=== PATIENT | female | born 1960 | race Caucasian/White ===

== ENCOUNTER 2016-03-14 21:23 | Emergency (ER) | payer OTHER ==
[~2016-03-14] VITALS: Ht 154.9 cm; Wt 72.8 kg
[~2016-03-14 21:23] MED LIST: BUPR-83 PO; CALC-51 PO; DIVA500T59 PO; ESTR1TAB2 PO; VITAMIN C PO; [UNRECOGNIZED DRUG - REMARK] PO
[2016-03-14 21:25] VITALS: TEMP 36.4; Ht 154.9 cm; Wt 72.8 kg
[2016-03-14] MEDS ORDERED: CALCTAB7 PO (22:16)
[2016-03-14] MEDS ORDERED: ASCA500 PO (22:16)
--- NOTE | 2016-03-14 22:46 | DIAGNOSTIC IMAGING REPORT ---
CHEST ONE VIEW PORTABLE HISTORY: Atypical CHEST PAIN COMPARISON: None. FINDINGS: The lungs are clear. Cardiac silhouette is normal in size. No pleural effusions. No pneumothorax. IMPRESSION: No acute process. Electronically signed by: Simeon López M.D. 03/14/2016 10:45 PM Dictated Date/Time: 03/14/2016 10:44 PM
[2016-03-14 23:03] LABS: BASO % 0.3 %; BASO ABS # 0.04 K/uL (0-0.2); COMPLETE YES; EOS % 0.7 %; HEMATOCRIT 39.9 % (37-47); IG% 0.2 %; LYMPH ABS # 2.75 K/uL (1.2-3.4); MEAN CORPUSCULAR HEMOGLOBIN 28.2 pg (25-34); MEAN CORPUSCULAR HGB CONC 32.8 g/dl (32-36); MEAN PLATELET VOLUME 11.2 fL (7.4-10.4); MONO % 7.6 %; NEUT % 71.2 %; PLATELET COUNT 389 K/uL (130-400); RED BLOOD COUNT 4.64 M/uL (4.2-5.4); WHITE BLOOD COUNT 13.72 K/uL (4.8-10.8)
[2016-03-14 23:36] LABS: BLOOD UREA NITROGEN 22 mg/dl (7-18); BUN/CREATININE RATIO 20.2 (10-20); CALCIUM 9.5 mg/dl (8.5-10.1); CARBON DIOXIDE 27 mmol/L (21-32); CHLORIDE 103 mmol/L (98-107); GLUCOSE 95 mg/dl (70-99); SODIUM 143 mmol/L (136-145)
[2016-03-14 23:38] LABS: ALKALINE PHOSPHATASE 49 U/L (45-117); ALT/SGPT 26 U/L (12-78); AST/SGOT 23 U/L (15-37)
[2016-03-15] MEDS ORDERED: ONDANSETRON HOME PACK 4MG OD TAB PO ONE (00:30)
--- NOTE | 2016-03-15 01:07 | EMERGENCY ROOM VISIT NOTE ---
History First contact with patient: 21:39 Chief Complaint: ABDOMINAL PAIN Stated Complaint: PAIN IN ABDOMON, WENT AWAY ON THE WAY HERE Nursing Triage Summary: Pt reports she developed upper mid abdominal pain today after eating. Pain subsided prior to arrival to ER. Hx of kidney stones, but states it did not feel like a kidney stone. History of Present Illness The patient is a 55 year old female who presents to the Emergency Room with complaints of epigastric discomfort that lasted for about 45 minutes tonight at 8 PM. Patient had fried potatoes and eggs for dinner. No history of similar symptoms in the past. She describes the pain as aching, ranging in severity was 8 out of 10 and now is pain-free. She did not take any medicines for this. She was nauseous and sweaty with the pain. Pain did not radiate. Patient denies chest pain, dyspnea, fever, chills, vomiting, diarrhea, back pain, urinary symptoms. Review of Systems See HPI for pertinent positives & negatives. A total of 10 systems reviewed and were otherwise negative. Past Medical/Surgical History Medical Problems: (1) Anxiety State Nos (2) Bipolar Disorder, Unspecified (3) Depression Surgical Problems: (1) History of hysterectomy Kidney stones, tube ligation Social History Smoking Status: Never Smoker Smokeless Tobacco Use: No Alcohol Use: occasionally Drug Use: none Marital Status: Housing Status: lives with family Current/Historical Medications Scheduled Ascorbic Acid (Vitamin C), 500 MG PO DAILY Bupropion (Wellbutrin), 100 MG PO QAM Calcium Carbonate-Vitamin D W/ (Caltrate 600 Plus), 1 TAB PO DAILY Divalproex Sodium (Depakote), 2 TAB PO HS Estradiol (Estrace), 1 MG PO QAM [Unknown Drug], 1 TAB PO QAM Allergies Coded Allergies: [place] (Verified Allergy, Unknown, Rash, 01/01/16) Penicillins (Verified Allergy, Unknown, UNKNOWN, 01/01/16) Risperidone (Verified Allergy, Unknown, RASH, 01/01/16) Physical Exam Vital Signs Date Time Temp Pulse Resp B/P Pulse Ox O2 Delivery O2 Flow Rate FiO2 03/14/16 23:58 82 18 125/75 96 Room Air 03/14/16 22:37 84 03/14/16 22:29 Room Air 03/14/16 22:27 82 20 136/105 95 03/14/16 21:25 36.4 92 18 159/89 97 Room Air Physical Exam VITALS: Vitals are noted on the nurse's note and reviewed by myself. Vital signs stable. GENERAL: Pleasant female, in no acute distress, nondiaphoretic, well-developed well-nourished. SKIN: The skin was without rashes, erythema, edema, or bruising. There is no tenting of the skin. Capillary reflex less than 2 seconds. HEAD: Normocephalic atraumatic. EARS: External auditory canals clear, tympanic membranes pearly nixon without erythema or effusion bilaterally. EYES: Pupils equal round and reactive to light and accommodation. Conjunctivae without injection, sclerae without icterus. Extraocular movements intact. NOSE: Patent, turbinates without inflammation or discharge. MOUTH: Mucous membranes moist. Pharynx without erythema or exudate. Uvula midline. Airway patent. Tongue does not deviate. NECK: Supple without nuchal rigidity. No lymphadenopathy. No thyromegaly. Cervical spine is nontender. No JVD. HEART: Regular rate and rhythm without murmurs gallops or rubs. LUNGS: Clear to auscultation bilaterally without wheezes, rales or rhonchi. No dullness to percussion. No retractions or accessory muscle use. ABDOMEN: Positive bowel sounds x 4. Normal tympanic percussion. Soft, minimally tender epigastric region, no CVA tenderness, without masses or organomegaly. Kaur sign negative. No guarding or rebound tenderness. MUSCULOSKELETAL: No muscle atrophy, erythema, or edema noted. NEURO: Patient was alert and oriented to person place and time. Normal sensation to light and sharp touch. No focal neurological deficits. Medical Decision & Procedures Laboratory Results 03/14/16 22:20 Red Blood Count 4.64, Mean Corpuscular Volume 86.0, Mean Corpuscular Hemoglobin 28.2, Mean Corpuscular Hemoglobin Concent 32.8, Mean Platelet Volume 11.2, Neutrophils (%) (Auto) 71.2, Lymphocytes (%) (Auto) 20.0, Monocytes (%) (Auto) 7.6, Eosinophils (%) (Auto) 0.7, Basophils (%) (Auto) 0.3, Neutrophils # (Auto) 9.76, Lymphocytes # (Auto) 2.75, Monocytes # (Auto) 1.04, Eosinophils # (Auto) 0.10, Basophils # (Auto) 0.04 03/14/16 22:20 Test 03/14/16 22:20 03/15/16 00:17 White Blood Count 13.72 K/uL (4.8-10.8) Red Blood Count 4.64 M/uL (4.2-5.4) Hemoglobin 13.1 g/dL (12.0-16.0) Hematocrit 39.9 % (37-47) Mean Corpuscular Volume 86.0 fL (80-100) Mean Corpuscular Hemoglobin 28.2 pg (25-34) Mean Corpuscular Hemoglobin Concent 32.8 g/dl (32-36) Platelet Count 389 K/uL (130-400) Mean Platelet Volume 11.2 fL (7.4-10.4) Neutrophils (%) (Auto) 71.2 % Lymphocytes (%) (Auto) 20.0 % Monocytes (%) (Auto) 7.6 % Eosinophils (%) (Auto) 0.7 % Basophils (%) (Auto) 0.3 % Neutrophils # (Auto) 9.76 K/uL (1.4-6.5) Lymphocytes # (Auto) 2.75 K/uL (1.2-3.4) Monocytes # (Auto) 1.04 K/uL (0.11-0.59) Eosinophils # (Auto) 0.10 K/uL (0-0.5) Basophils # (Auto) 0.04 K/uL (0-0.2) RDW Standard Deviation 39.4 fL (36.4-46.3) RDW Coefficient of Variation 12.5 % (11.5-14.5) Immature Granulocyte % (Auto) 0.2 % Immature Granulocyte # (Auto) 0.03 K/uL (0.00-0.02) Anion Gap 13.0 mmol/L (3-11) Est Creatinine Clear Calc Drug Dose 52.1 ml/min Estimated GFR () 65.0 Estimated GFR (Non- 56.1 BUN/Creatinine Ratio 20.2 (10-20) Calcium Level 9.5 mg/dl (8.5-10.1) Magnesium Level 2.0 mg/dl (1.8-2.4) Total Bilirubin 0.2 mg/dl (0.2-1) Direct Bilirubin mg/dl (0-0.2) Aspartate Amino Transf (AST/SGOT) 23 U/L (15-37) Alanine Aminotransferase (ALT/SGPT) 26 U/L (12-78) Alkaline Phosphatase 49 U/L (45-117) Total Protein 7.5 gm/dl (6.4-8.2) Albumin 3.8 gm/dl (3.4-5.0) Lipase 217 U/L (73-393) Chemistry Specimen Hemolysis Troponin I < 0.015 ng/ml (0-0.045) ED Course Prior records/ancillary studies reviewed. Triage Nursing notes reviewed. Additional history obtained from family. The patient's history was concerning for abdominal pain. Differential diagnosis: Etiologies such as appendicitis, cardiac, diverticulitis, PUD, biliary pathology , UTI, pancreatitis, obstruction, mesenteric ischemia, aortic pathology, infections, inflammatory bowel disease, renal colic, as well as others were entertained. Physical examination findings: As above. ER treatment provided: IV fluids On reassessment the patient felt better. Diagnostics interpreted by me: ECG: Normal sinus, normal intervals, no acute ST-T wave changes. Impression normal sinus rhythm interpreted by myself The labs revealed 2 negative troponins 2 hours prior Imaging studies: US GALLBLADDER: 1.2 cm hepatic cyst No right hydronephrosis or evidence of free fluid Visualized head and body of the pancreas appear unremarkable A few small gallstones without wall thickening or pericholecystic free fluid CBD 5 mm Radiologist: Redd Sabillon M.D. CHEST ONE VIEW PORTABLE HISTORY: Atypical CHEST PAIN COMPARISON: None. FINDINGS: The lungs are clear. Cardiac silhouette is normal in size. No pleural effusions. No pneumothorax. IMPRESSION: No acute process. Electronically signed by: Simeon López M.D. 03/14/2016 10:45 PM Exam and history seem consistent with biliary colic. Patient was well- appearing. Pain had resolved. Negative EKG. Negative troponin. She was advised to follow-up family medicine in a few days or here in the ER sooner for vomiting, fevers, vomiting, worsening signs or symptoms or as needed. She did not have acute abdomen on exam and was stable. She is tolerating fluids.By the evaluation outlined above emergent etiologies such as appendicitis, diverticulitis, PUD, UTI, pancreatitis, obstruction, mesenteric ischemia, aortic pathology, infections, inflammatory bowel disease, renal colic, as well as others were deemed relatively unlikely. The pt informed about the findings as listed above. All questions were answered and pleased with the treatment. Return instructions were outlined and the patient was discharged in stable condition. Referral: The patient was referred back to their primary care physician for follow-up in 2 to 3 days for a recheck of the current condition. Case reviewed by attending. Medical Decision As above Impression Primary Impression: Biliary colic Departure Information Dispostion Home / Self-Care Condition GOOD Referrals Parviz Jesus M.D. (PCP) Patient Instructions [facility] Additional Instructions Avoid fatty foods. Matthews diet. Recommend hida scan outpatient with family care doctor for further evaluation and workup on her gallbladder. Ibuprofen(Motrin, Advil) may be used for fever or pain. Use 600mg every six hours as needed. Take with food. Avoid using more than 2400mg in a 24 hour period. Do not use 2400mg per day for more than three consecutive days without physician direction. Prolonged inappropriate use can lead to stomach upset or ulcers. (AND/OR) Acetaminophen(Tylenol) may be used for fever or pain. Use 1000mg every six hours as needed. Avoid using more than 3000mg in a 24 hour period. Rest and drink plenty of fluids as tolerated. Continue current medications. Avoid strenuous activities and anything that worsens your pain. Resume normal activities once your symptoms resolve. Return to the ER immediately for worsening or persistent abdominal pain, vomiting, fevers, chest pains, difficulty breathing, worsening of your condition , or as needed. Follow up with your primary physician in 2-3 days for a recheck of your current condition.
[2016-03-15 01:40] VITALS: BP 96/84; PULSE 87; O2SAT 96
--- NOTE | 2016-03-15 07:04 | DIAGNOSTIC IMAGING REPORT ---
ULTRASOUND RIGHT UPPER QUADRANT ABDOMEN CLINICAL HISTORY: Right upper quadrant abdominal pain. COMPARISON STUDY: No priors. TECHNIQUE: Real-time, grayscale, and color flow sonography of the right upper quadrant of the abdomen was performed. Images are reviewed in the transverse and longitudinal planes. FINDINGS: Liver: The liver is normal in size and echotexture. There is no intrahepatic biliary ductal dilatation. The main portal vein is patent. A 1.2 cm hepatic cyst is incidentally noted. Gallbladder: There are small calcified mobile gallstones. There is no gallbladder wall thickening or pericholecystic fluid. A sonographic Kaur's sign is reportedly absent. The common bile duct measures up to 0.5 cm in diameter. Pancreas: Visualized portions of the pancreatic head and body are normal in appearance. Right kidney: Survey images of the right kidney demonstrate cortical atrophy. There is no hydronephrosis. Ascites: None. IMPRESSION: Cholelithiasis without sonographic evidence of acute cholecystitis. Electronically signed by: Bhavik Kee M.D. 03/15/2016 7:03 AM Dictated Date/Time: 03/15/2016 7:01 AM
[2016-08-20] MEDS ORDERED: MIRT15TA2 PO (08:04)
[2016-08-20] MEDS ORDERED: FENO160T PO (08:04)
[2016-08-20] MEDS ORDERED: PANT40TA PO (08:04)
[2016-08-26] MEDS ORDERED: HYDR-5688 PO (08:27)
== END 2016-03-15 01:40 | disposition home or self-care (01) ==
LOC: C.EDB 21:24
DX: K80.50 Calculus of bile duct without cholangitis or cholecystitis without obstruction (principal); Z87.442 Personal history of urinary calculi; F41.9 Anxiety disorder, unspecified; F31.9 Bipolar disorder, unspecified; Z90.710 Acquired absence of both cervix and uterus; Z98.51 Tubal ligation status; Z79.899 Other long term (current) drug therapy

== ENCOUNTER → 2016-05-16 | Outpatient (CLI) | payer OTHER ==
[~2016-05-16] MED LIST changes: +ASCA500 PO; -CALC-51 PO; +CALCTAB7 PO; +FENO160T PO; +HYDR-5688 PO; +MIRT15TA2 PO; +PANT40TA PO; -VITAMIN C PO
--- NOTE | 2016-05-16 15:07 | MAMMOGRAPHY REPORT ---
BILATERAL DIGITAL SCREENING MAMMOGRAM TOMOSYNTHESIS WITH CAD: 05/16/2016 CLINICAL HISTORY: Routine screening. Patient has no complaints. TECHNIQUE: Breast tomosynthesis in addition to standard 2D mammography was performed. Current study was also evaluated with a Computer Aided Detection (CAD) system. COMPARISON: Comparison is made to exams dated: 11/22/2014 mammogram, 05/04/2014 mammogram, 10/08/2013 mammogram, 09/28/2013 mammogram, 09/23/2012 mammogram, and 09/10/2011 mammogram - [facility]. BREAST COMPOSITION: There are scattered areas of fibroglandular density in both breasts. FINDINGS: No suspicious masses, calcifications, or areas of architectural distortion are noted in e ither breast. There has been no significant interval change compared to prior exams. Bilateral adilson gn-appearing masses and calcifications are not significantly changed. IMPRESSION: ACR BI-RADS CATEGORY 2: BENIGN There is no mammographic evidence of malignancy. A 1 year screening mammogram is recommended. The p atient will receive written notification of the results. Approximately 10% of breast cancers are not detected with mammography. A negative mammographic repor t should not delay biopsy if a clinically suggestive mass is present. Elidia Huerta M.D. /:05/16/2016 13:59:21 [employer]: Tova ALICIA)(Rene), [facility] letter sent: Normal 1/2 BI-RADS Code: ACR BI-RADS Category 2: Benign
== END | disposition home or self-care (01) ==
LOC: C.MAMM 13:30
PROVIDERS: ATTEND Obstetrics & Gynecology
DX: Z12.31 Encounter for screening mammogram for malignant neoplasm of breast (principal)

== ENCOUNTER 2016-08-26 06:43 | Observation (INO) | payer OTHER ==
[2016-08-20 08:05] VITALS: BMI 29.0
--- NOTE | 2016-08-20 08:47 | PAT Medication Instructions ---
Service Date Aug 20, 2016. Current Home Medication List Bupropion (Wellbutrin), 100 MG PO QAM Calcium Carbonate-Vitamin D W/ (Caltrate 600 Plus), 1 TAB PO QAM Divalproex Sodium (Depakote), 2 TAB PO HS Estradiol (Estrace), 1 MG PO QAM Fenofibrate (Tricor), 160 MG PO QAM Mirtazapine Soltab (Remeron Soltab), 15 MG PO DAILY PRN for prn Pantoprazole (Protonix), 40 MG PO QAM Medication Instructions For Your Scheduled Surgery -Hold the following medications 24 hours prior to surgery: Fenofibrate (Tricor), 160 MG PO QAM - Hold the following medications the morning of surgery: Calcium Carbonate-Vitamin D W/ (Caltrate 600 Plus), 1 TAB PO QAM - Take the following medications the morning of surgery with a sip of water OTHERWISE NOTHING TO EAT OR DRINK AFTER MIDNIGHT: Estradiol (Estrace), 1 MG PO QAM Bupropion (Wellbutrin), 100 MG PO QAM Pantoprazole (Protonix), 40 MG PO QAM - Take the following medications as scheduled the night before surgery: Divalproex Sodium (Depakote), 2 TAB PO HS Mirtazapine Soltab (Remeron Soltab), 15 MG PO DAILY PRN If you have any questions please call us at [phone] or [phone] or [phone]
[2016-08-20 09:31] LABS: BASO % 0.7 %; BASO ABS # 0.04 K/uL (0-0.2); COMPLETE YES; EOS % 2.3 %; HEMATOCRIT 41.4 % (37-47); IG% 0.2 %; LYMPH % 47.3 %; LYMPH ABS # 2.73 K/uL (1.2-3.4); MEAN CELL VOLUME 87.5 fL (80-100); MEAN CORPUSCULAR HEMOGLOBIN 28.1 pg (25-34); MEAN CORPUSCULAR HGB CONC 32.1 g/dl (32-36); MONO % 9.5 %; PLATELET COUNT 338 K/uL (130-400); RED BLOOD COUNT 4.73 M/uL (4.2-5.4); WHITE BLOOD COUNT 5.77 K/uL (4.8-10.8)
[2016-08-20 10:31] LABS: BUN/CREATININE RATIO 19.4 (10-20); CALCIUM 9.6 mg/dl (8.5-10.1); CREATININE 0.93 mg/dl (0.60-1.20); POTASSIUM 4.1 mmol/L (3.5-5.1)
[2016-08-26] VITALS (11 sets, daily range): BP systolic 96–134; BP diastolic 54–85; PULSE 70–88; TEMP 36.2–36.8; O2SAT 92–98; Ht 154.9 cm; Wt 70.7 kg
[~2016-08-26] VITALS: Ht 154.9 cm; Wt 70.7 kg
[~2016-08-26 06:43] MED LIST changes: -ASCA500 PO; +CLINDAMYCIN IV 900 MG in DEXTROSE 5% ADD-VANTAGE 100ML 100 ML IV SCH; -HYDR-5688 PO; +LACTATED RINGER'S 1000ML IV SCH; +SCOPOLAMINE 1.5 MG TDSY TD SCH; -[UNRECOGNIZED DRUG - REMARK] PO
--- NOTE | 2016-08-26 08:20 | History & Physical Bridge Note ---
H&P Re-Evaluation Bridge Note: I have examined the patient, reviewed the History & Physical and in the interval since the performance of the History & Physical I have noted the following changes of clinical significance: No changes noted
[2016-08-26] MEDS ORDERED: BUPIVACAINE 0.5 % 5 MG/1 ML MPF 30ML VIAL ONE (08:27)
[2016-08-26] MEDS ORDERED: HYDR-5688 PO (08:27)
--- NOTE | 2016-08-26 08:28 | Discharge Instructions ---
Discharge Instructions Date of Service Aug 26, 2016. Admission Reason for Admission: Biliary Colic Discharge Discharge Diagnosis / Problem: chronic cholecystitis Discharge Goals Goal(s): Decrease discomfort, Improve function, Improve disease control Activity Recommendations Activity Limitations: as noted below Lifting Limitations: no more than 25 pounds Exercise/Sports Limitations: until after follow-up appointment May Resume Sexual Activity: when tolerated Shower/Bathe: tomorrow Driving or Machine Use: resume 3 days after discharge SPECIAL CARE INSTRUCTIONS: * Cover incisions and change daily for comfort/drainage. May leave uncovered with dermabond * May use ibuprofen for pain as tolerated. * Expect some swelling and bruising. Call your doctor if: * Temperature above 101 degrees * Pain not relieved by pain medicine ordered * There is increased drainage or redness from any incision * You have any unanswered questions or concerns [phone]. FOLLOW UP VISIT: If not already scheduled, please call the office for a follow-up visit. for 2 weeks- no sutures to remove OFFICE PHONE NUMBER: Dr. Loza Office . Current Hospital Diet Patient's current hospital diet: Discharge Diet Recommended Diet: Regular Diet Pending Studies Studies pending at discharge: no Medical Emergencies . Who to Call and When: Medical Emergencies: If at any time you feel your situation is an emergency, please call 911 immediately. . Non-Emergent Contact Non-Emergency issues call your: Primary Care Provider, Surgeon . "Provider Documentation" section prepared by Redd Loza. . VTE Core Measure Inpt VTE Proph given/why not?: SCD's
[2016-08-26] MEDS ORDERED: FENTANYL CITRATE INJ 50 MCG/1 ML 2 ML VIAL ONE (08:34)
[2016-08-26] MEDS ORDERED: MIDAZOLAM HCL 1 MG/ML 2ML VIAL ONE (08:34)
[2016-08-26] MEDS ORDERED: HYDROmorphone INJ 1 MG/ML SYR IV PRN (08:45)
[2016-08-26] MEDS ORDERED: ONDANSETRON INJ 2 MG/ML 2 ML VIAL IV PRN ×2 (08:45→09:45)
[2016-08-26] MEDS ORDERED: EpHEDrine SULFATE INJ 50 MG/ML AMP IV PRN (08:45)
[2016-08-26] MEDS ORDERED: ATROPINE SULFATE 0.1 MG/ML 5ML SYR IV PRN (08:45)
[2016-08-26] MEDS ORDERED: DEXAMETHASONE SOD INJ 4 MG/ML VIAL ONE (09:15)
[2016-08-26] MEDS ORDERED: PROPOFOL IV EMULSION 10 MG/ML 20 ML VIAL IV ONE (09:15)
[2016-08-26] MEDS ORDERED: LIDOCAINE HCL 2% 2 ML VIAL (20MG/ML) ONE ×2 (09:15)
[2016-08-26] MEDS ORDERED: ONDANSETRON INJ 2 MG/ML 2 ML VIAL ONE (09:15)
[2016-08-26] MEDS ORDERED: ROCURONIUM BROMIDE 10 MG/ML 5 ML VIAL ONE (09:16)
[2016-08-26] MEDS ORDERED: HYDROmorphone INJ 2 MG/ML SYR/VIAL ONE (09:25)
[2016-08-26] MEDS ORDERED: GLYCOPYRROLATE INJ 0.2 MG/ML VIAL ONE ×2 (09:34)
[2016-08-26] MEDS ORDERED: LACTATED RINGER'S 1000ML 1,000 ML IV SCH (09:34)
--- NOTE | 2016-08-26 09:41 | [facility] Operative Report ---
Operative Report Operative Date Aug 26, 2016. Pre-Operative Diagnosis Biliary Colic Post-Operative Diagnosis Same Procedure(s) Performed Laparoscopic Cholecystectomy Surgeon Dr. Loza Sample Puller Surgeon(s) MAIRA Armendariz Estimated Blood Loss 10ML Findings distended gallbladder Specimens A. Gallbladder Anesthesia gen Complication(s) None Disposition Recovery Room / PACU Description of Procedure Patient was brought in the operating room placed in the operating room table in a supine position. Metastatic stockings and orogastric tube were placed. Her abdomen was prepped and draped in usual fashion. A lower midline incision. Using 1/2% plain Marcaine the skin and subcutaneous taste tissue above the umbilicus were anesthetized. Incisions may carry dissection down to the fascia and reflecting it with a trach hook. A varies needle was then passed and pneumoperitoneum produced. Patient was placed in reverse Trendelenburg position and rotated to the left. An 11 mm port was placed this level and then under visualization 3 - 5 mm ports were placed one cephalad to laterally. The gallbladder was grasped and retracted. It was distended and then it was aspirated of bile. Dissection was carried at the annie hepatis identifying the cystic duct and cystic artery. These were clipped and transected and the gallbladder dissected away from the liver bed in usual fashion. Gallbladder was placed in an Endobag and removed through the umbilical site. All ports removed the fascia at the umbilicus closed using interrupted 0 Vicryl suture. Given reapproximated with subcuticular 4-0 Monocryl and Dermabond. Patient was transferred recovery room in stable condition. I attest to the content of the Intraoperative Record and any orders documented therein. Any exceptions are noted below.
[2016-08-26] MEDS ORDERED: PROMETHAZINE HCL INJ 25 MG in SODIUM CHLORIDE 0.9% 50ML 50 ML IV PRN (09:45)
[2016-08-26] MEDS ORDERED: MoRPHine SULFATE 2 MG/ML CARP IV PRN (09:45)
[2016-08-26] MEDS ORDERED: HYDROCODONE/ACETAMOPHEN 5/325MG TAB PO PRN ×2 (09:45)
[2016-08-26] MEDS ORDERED: MoRPHine SULFATE 4 MG/ML 1 ML CARP\\VIAL IV PRN (09:45)
[2016-08-26] MEDS: FENTANYL CITRATE INJ 50 MCG/1 ML 2 ML VIAL IV PRN ×3 (10:00→10:10)
[2016-08-26] MEDS ORDERED: PROMETHAZINE HCL INJ 12.5 MG in SODIUM CHLORIDE 0.9% 50ML 50 ML IV PRN (10:15)
--- NOTE | 2016-08-26 10:31 | Anesthesiology Progress Note ---
Anesthesia Post Op Note Date & Time Aug 26, 2016 at 10:30 Vital Signs Pain Intensity: 2 Vital Signs Past 12 Hours Date Time Temp Pulse Resp B/P (MAP) Pulse Ox O2 Delivery O2 Flow Rate FiO2 08/26/16 10:25 36.5 71 18 123/77 100 Nasal Cannula 2 08/26/16 10:15 67 18 128/78 100 Nasal Cannula 2 08/26/16 10:05 72 18 126/72 100 Oxymask 3 08/26/16 09:55 90 18 136/88 100 Oxymask 5 08/26/16 09:49 36.3 90 14 134/85 99 Oxymask 10 08/26/16 07:22 36.2 88 16 118/82 (94) 96 Room Air Notes Mental Status: alert / awake / arousable, participated in evaluation Pt Amnestic to Procedure: Yes Nausea / Vomiting: adequately controlled Pain: adequately controlled Airway Patency, RR, SpO2: stable & adequate BP & HR: stable & adequate Hydration State: stable & adequate Anesthetic Complications: no major complications apparent
--- NOTE | 2016-08-26 11:44 | Medical Consult ---
Consultation Date of Consultation: Aug 26, 2016. Attending Physician: Redd Loza M.D. Reason for Consultation: Medical Management History of Present Illness Pt is a 55 yo female with a h/o bipolar disorder, anxiety/depression, hyperlipidemia, and GERD, who is admitted for overnight obs after a lap paula performed today by Dr. Loza for biliary colic. SHe is drowsy post-op but otherwise feeling well. No N/V, no abd pain, no CP or SOB. Past Medical/Surgical History PMH: Biliary colic Bipolar Disorder, Unspecified Depression/Anxiety H/o Endometriosis cured with KRISTINE/BSO PSH: KRISTINE and BSO Family History Dad-colon CA in older age Mom-DMII Sister-DMII Brother-h/o biliary colic Social History Smoking Status: Never Smoker Smokeless Tobacco Use: No Alcohol Use: socially (1-2x/month) Drug Use: none Marital Status: in relationship (boyfriend) Housing Status: lives with family Occupation Status: employed ([employer]) Allergies Coded Allergies: [place] (Verified Allergy, Unknown, Rash, 08/20/16) Penicillins (Verified Allergy, Unknown, UNKNOWN, 08/20/16) Risperidone (Verified Allergy, Unknown, RASH, 08/20/16) Home Medications Reported Home Medications Medications Dose Route/Sig Max Daily Dose Days Date Category Dose Instructions Yale 5MG/325MG (Acetaminophen/Hydrocodone Bitart) Tab 1-2 Tablet PO Q 6 HRS PRN 08/26/16 Rx PRN PAIN Remeron Soltab (Mirtazapine) 15 Mg Soltab 15 Mg PO DAILY PRN 08/20/16 Reported Protonix (Pantoprazole Sodium) 40 Mg Tab 40 Mg PO QAM 08/20/16 Reported Tricor (Fenofibrate) 160 Mg Tab 160 Mg PO QAM 08/20/16 Reported Caltrate 600 Plus (Calcium Carbonate-Vitamin D W/) 1 Tab Tab 1 Tab PO QAM 03/14/16 Reported Wellbutrin (Bupropion HCl) 100 Mg Tab 100 Mg PO QAM 12/19/15 Reported Depakote (Divalproex Sodium) 500 Mg Tab 2 Tab PO HS 30 12/19/15 Reported Estrace (Estradiol) 1 Mg Tab 1 Mg PO QAM 01/02/15 Reported Current Inpatient Medications Current Inpatient Medications Medications (Trade) Dose Ordered Sig/Brice Route Start Time Stop Time Status Last Admin Dose Admin Lactated Ringer's 1,000 ml @ 15 mls/hr Q24H IV 08/26/16 06:00 08/27/16 05:59 08/26/16 07:42 15 MLS/HR Scopolamine (Transderm-Scop Patch) 1.5 mg PREOP TD 08/26/16 06:00 08/26/16 15:00 08/26/16 07:42 1.5 MG Miscellaneous (Remove Transderm-Scop Patch) 1 ea Q72H N/A 08/29/16 06:00 08/29/16 06:01 Miscellaneous Information (Check Scopolamine Patch Placement) 1 ea QS N/A 08/26/16 16:00 08/28/16 05:59 Fentanyl Citrate (Fentanyl Inj) 25 mcg Q5M PRN IV 08/26/16 08:45 08/26/16 13:45 08/26/16 10:10 25 MCG Hydromorphone HCl (Dilaudid Inj) 0.5 mg Q5M PRN IV 08/26/16 08:45 08/26/16 13:45 Ephedrine Sulfate (EpHEDrine SULFATE INJ) 5 mg Q5M PRN IV 08/26/16 08:45 08/26/16 13:45 Atropine Sulfate (Atropine Sulfate 0.1MG/Ml Inj) 0.5 mg Q1M PRN IV 08/26/16 08:45 08/26/16 13:45 Bupropion HCl (Wellbutrin Tab) 100 mg QAM PO 08/27/16 09:00 09/26/16 08:59 UNV Divalproex Sodium (Depakote Delay Rel Tab) 1,000 mg HS PO 08/26/16 21:00 09/25/16 20:59 UNV Lactated Ringer's 1,000 ml @ 50 mls/hr Q20H IV 08/26/16 09:34 09/25/16 09:33 08/26/16 10:53 50 MLS/HR Acetaminophen/ Hydrocodone Bitart (Yale 5/325 Tab) 1 tab Q4 PRN PO 08/26/16 09:45 09/09/16 09:44 Acetaminophen/ Hydrocodone Bitart ([place]ale 5/325 Tab) 2 tab Q4 PRN PO 08/26/16 09:45 09/09/16 09:44 Morphine Sulfate (MoRPHine SULFATE INJ) 2 mg Q4H PRN IV 08/26/16 09:45 09/09/16 09:44 Morphine Sulfate (MoRPHine SULFATE INJ) 4 mg Q4H PRN IV 08/26/16 09:45 09/09/16 09:44 Promethazine HCl 25 mg/Sodium Chloride 51 ml @ 204 mls/hr Q6H PRN IV 08/26/16 09:45 09/25/16 09:44 Ondansetron HCl (Zofran Inj) 4 mg Q6H PRN IV 08/26/16 09:45 09/25/16 09:44 Ketorolac Tromethamine (Toradol Inj) 30 mg Q6H IV. 08/26/16 09:45 08/27/16 01:00 UNV Promethazine HCl 12.5 mg/Sodium Chloride 50.5 ml @ 204 mls/hr Q6H PRN IV 08/26/16 10:15 09/25/16 10:14 Review of Systems Constitutional: No fever, No chills Eyes: No problem reported ENT: No problem reported Respiratory: No shortness of breath Cardiovascular: No chest pain, No edema Abdomen: No pain, No nausea, No vomiting Musculoskeletal: No joint pain Genitourinary - Female: No problem reported Neurologic: No problem reported Psychiatric: No problem reported Endocrine: No problem reported Hematologic / Lymphatic: No problem reported Integumentary: No rash Allergic / Immunologic: No problem reported Physical Exam Date Time Temp Pulse Resp B/P (MAP) Pulse Ox O2 Delivery O2 Flow Rate FiO2 08/26/16 11:11 36.3 70 20 113/75 (88) 97 Nasal Cannula 2.0 08/26/16 11:03 Nasal Cannula 3.0 08/26/16 10:51 92 Nasal Cannula 3.0 08/26/16 10:40 36.7 72 16 134/83 (100) 94 Nasal Cannula 3.0 08/26/16 10:25 36.5 71 18 123/77 100 Nasal Cannula 2 08/26/16 10:15 67 18 128/78 100 Nasal Cannula 2 08/26/16 10:05 72 18 126/72 100 Oxymask 3 08/26/16 09:55 90 18 136/88 100 Oxymask 5 08/26/16 09:49 36.3 90 14 134/85 99 Oxymask 10 08/26/16 07:22 36.2 88 16 118/82 (94) 96 Room Air General Appearance: WD/WN, no apparent distress Head: normocephalic, atraumatic Eyes: normal inspection, PERRL, EOMI, sclerae normal ENT: hearing grossly normal, pharynx normal Neck: supple, no adenopathy, thyroid normal, no JVD, trachea midline Respiratory/Chest: lungs clear, normal breath sounds, no respiratory distress, no accessory muscle use Cardiovascular: regular rate, rhythm, no edema, no gallop, no JVD, no murmur, normal peripheral pulses Abdomen/GI: normal bowel sounds, non tender, soft, no organomegaly, + pertinent finding (all incisions with Dermabond in place and c/d/i) Back: normal inspection, no muscle spasm Extremities/Musculoskelatal: normal inspection, no calf tenderness, no pedal edema Neurologic/Psych: no motor/sensory deficits, alert, normal mood/affect, oriented x 3 Skin: normal color, warm/dry, no rash Laboratory Results Last 24 Hours Test 08/26/16 10:53 Assessment & Plan Pt is a 55 yo female with a h/o bipolar disorder, anxiety/depression, hyperlipidemia, and GERD, who is admitted for overnight obs after a lap paula performed by Dr. Loza for biliary colic. Cholecystectomy-doing well post-op day #0 -surgical management as per SUrgery team -pain control, antiemetics prn -IS -ambulate as tolerated -adv diet as per SUrgery Hyperlipidemia-stable, low on last check as per pt -continue Tricor upon dc Bipolar disorder, Anxiety/depression-stable -continue home meds upon discharge and while here only depakote and wellbutrin -Remeron is a prn at home GERD-stable but may have been symptoms from biliary colic -PPI held here and may not need after discharge Surgical Menopause- continue Estradiol at home Proph-SCDs only given recent surgery Dispo-to home tomorrow FULL CODE Additional Copies To Parviz Jesus M.D.
[2016-08-26] MEDS ORDERED: IV FLUIDS COMPLETED PRN (12:30)
[2016-08-26] MEDS: KETOROLAC TROMETHAMINE 30 MG/ML VIAL IV. SCH ×2 (13:44→20:00)
[2016-08-26] MEDS: CHECK SCOPOLAMINE PATCH PLACEMENT SCH (16:00)
[2016-08-26] MEDS ORDERED: DIVALPROEX SODIUM 500 MG DELAY RELEASE TAB PO SCH (21:00)
[2016-08-27] MEDS: KETOROLAC TROMETHAMINE 30 MG/ML VIAL IV. SCH (02:00)
[2016-08-27 03:17] VITALS: BP 101/62; PULSE 74; TEMP 36.9; O2SAT 96
[2016-08-27] MEDS ORDERED: IBUPROFEN 600 MG TAB PO PRN (05:30)
[2016-08-27] MEDS ORDERED: ACETAMINOPHEN 325 MG TAB PO PRN (05:30)
--- NOTE | 2016-08-27 06:20 | Discharge Summary ---
Discharge Summary Date of Service Aug 27, 2016. Discharge Summary Admission Date: Aug 26, 2016 at 09:38 Discharge Date: Aug 27, 2016 Primary Diagnosis: Chronic cholecystitis and biliary colic Secondary Diagnoses/Problems: Medical Problems: (1) Anxiety State Nos Status: Chronic (2) Biliary colic Status: Acute (3) Bipolar Disorder, Unspecified Status: Chronic (4) Depression Status: Chronic (5) Depression Status: Acute Surgical Problems: (1) History of hysterectomy Status: Resolved Procedures: Laparoscopic cholecystectomy Discharge Instructions Last Recorded Wt (Kilograms): 70.700 Allergies: Coded Allergies: [place] (Verified Allergy, Unknown, Rash, 08/20/16) Penicillins (Verified Allergy, Unknown, UNKNOWN, 08/20/16) Risperidone (Verified Allergy, Unknown, RASH, 08/20/16) Special Care: Call your doctor if: * Temperature above 101 degrees * Pain not relieved by pain medicine ordered * There is increased drainage or redness from any incision * You have any unanswered questions or concerns. Avoid all tobacco products. If you need help to stop smoking, call [facility] FREE QUITLINE at . This is a free call. Admission Information Admission HPI: Patient is brought in the hospital for elective cholecystectomy. Hospital Course Patient's brought in the hospital on August 26 for elective cholecystectomy. She was taken to the operating room where she underwent laparoscopic cholecystectomy. She's done very well overnight and is felt stable for discharge home today to be followed in the surgical clinic within 1-2 weeks. Total time spent on discharge = This includes examination of the patient, discharge planning, medication reconciliation, and communication with other providers.
[2016-08-27 07:00] LABS: BASO % 0.1 %; BASO ABS # 0.01 K/uL (0-0.2); COMPLETE YES; HEMATOCRIT 36.4 % (37-47); IG% 0.2 %; LYMPH % 17.3 %; MEAN CELL VOLUME 86.7 fL (80-100); MEAN CORPUSCULAR HEMOGLOBIN 27.6 pg (25-34); MEAN CORPUSCULAR HGB CONC 31.9 g/dl (32-36); MEAN PLATELET VOLUME 10.5 fL (7.4-10.4); MONO % 7.9 %; NEUT % 74.5 %; PLATELET COUNT 318 K/uL (130-400); WHITE BLOOD COUNT 11.53 K/uL (4.8-10.8)
[2016-08-27 07:25] LABS: BUN/CREATININE RATIO 13.6 (10-20); CALCIUM 9.2 mg/dl (8.5-10.1); CREATININE 0.96 mg/dl (0.60-1.20); POTASSIUM 4.3 mmol/L (3.5-5.1)
[2016-08-27 07:29] VITALS: BP 108/70; PULSE 74; TEMP 36.9; O2SAT 96
[2016-08-27] MEDS: CHECK SCOPOLAMINE PATCH PLACEMENT SCH ×2 (07:53)
[2016-08-27 07:59] VITALS: O2SAT 96
--- NOTE | 2016-08-27 08:20 | Anesthesiology Progress Note ---
Anesthesia Post Op Note Date & Time Aug 27, 2016 at 08:18 Vital Signs Pain Intensity: 0.0 Vital Signs Past 12 Hours Date Time Temp Pulse Resp B/P (MAP) Pulse Ox O2 Delivery O2 Flow Rate FiO2 08/27/16 08:00 Room Air 08/27/16 07:59 96 Room Air 08/27/16 07:29 36.9 74 16 108/70 (83) 96 Room Air 08/27/16 04:58 Room Air 08/27/16 03:17 36.9 74 14 101/62 (75) 96 Room Air 08/26/16 23:06 36.8 78 14 108/65 (79) 98 Room Air Notes Mental Status: alert / awake / arousable, participated in evaluation Pt Amnestic to Procedure: Yes Nausea / Vomiting: adequately controlled Pain: adequately controlled Airway Patency, RR, SpO2: stable & adequate BP & HR: stable & adequate Hydration State: stable & adequate Anesthetic Complications: no major complications apparent
[2016-08-27 09:03] VITALS: BP 108/70; PULSE 74; TEMP 36.9; O2SAT 96
--- NOTE | 2016-08-27 12:12 | Progress Note ---
Subjective Date of Service: Aug 27, 2016. Subjective Pt evaluation today including: conversation w/ patient, conversation w/ family , physical exam, chart review, lab review, review of studies, conversation w/ programmer analyst consultant, review of inpatient medication list Doing well, OOB and walk Problem List Medical Problems: (1) Anxiety State Nos Status: Chronic (2) Biliary colic Status: Acute (3) Bipolar Disorder, Unspecified Status: Chronic (4) Depression Status: Chronic (5) Depression Status: Acute Review of Systems Constitutional: No fever, No chills, No sweats, No weight loss, No weakness, No fatigue, No problem reported Eyes: No worsening of vision, No eye pain, No redness, No discharge, No diplopia ENT: No hearing loss, No unusual epistaxis, No nasal symptoms, No sore throat, No tinnitus, No dental problems, No trouble swallowing Respiratory: No cough, No sputum, No wheezing, No shortness of breath, No dyspnea on exertion, No dyspnea at rest, No hemoptysis Cardiac: No chest pain, No orthopnea, No PND, No edema, No claudication, No palpitations Abdomen: No pain, No nausea, No vomiting, No diarrhea, No constipation Musculoskeletal: No joint pain, No muscle pain, No swelling, No calf pain Female : No dysuria, No urinary frequency, No hematuria, No incontinence, No abnormal vaginal bleeding, No vaginal discharge Neurologic: No memory loss, No paralysis, No weakness, No numbness/tingling, No vertigo, No balance problems Psychiatric: No depression symptoms, No anhedonism, No anxiety, No insomnia, No substance abuse Heme: No abnormal bleeding/bruising, No clotting problems, No swollen lymph nodes, No night sweats Endo: No fatigue, No excessive thirst, No excessive urination Skin: No rash, No itch, No new/changing skin lesions, No color change, No bleeding Objective Vital Signs Date Time Temp Pulse Resp B/P (MAP) Pulse Ox O2 Delivery O2 Flow Rate FiO2 08/27/16 09:03 36.9 74 16 96 Nasal Cannula 08/27/16 08:00 Room Air 08/27/16 07:59 96 Room Air 08/27/16 07:29 36.9 74 16 108/70 (83) 96 Room Air 08/27/16 04:58 Room Air 08/27/16 03:17 36.9 74 14 101/62 (75) 96 Room Air 08/26/16 23:06 36.8 78 14 108/65 (79) 98 Room Air 08/26/16 19:19 36.7 77 18 107/69 (82) 96 Room Air 08/26/16 16:30 Room Air 08/26/16 14:57 36.4 74 18 96/54 (68) 95 Room Air 08/26/16 13:50 74 16 103/65 (78) 98 2.0 08/26/16 13:30 95 Room Air 08/26/16 12:51 75 17 114/66 (82) 97 Nasal Cannula 2.0 Physical Exam General Appearance: WD/WN, no apparent distress Eyes: normal inspection, PERRL, EOMI, sclerae normal ENT: normal ENT inspection, hearing grossly normal, pharynx normal Neck: supple, no adenopathy, thyroid normal, no JVD, no carotid bruits, trachea midline Respiratory/Chest: chest non-tender, lungs clear, normal breath sounds, no respiratory distress, no accessory muscle use Cardiovascular: regular rate, rhythm, no edema, no gallop, no JVD, no murmur Abdomen: normal bowel sounds, non tender, soft, no organomegaly, no pulsatile mass Extremities: normal range of motion, non-tender, normal inspection, no pedal edema, no calf tenderness, normal capillary refill, pelvis stable Neurologic/Psychiatric: dentist attendant II-XII nml as tested, no motor/sensory deficits, alert, normal mood/affect, oriented x 3 Skin: normal color, warm/dry, no rash Lymphatic: no adenopathy Laboratory Results Last 24 Hours Test 08/27/16 06:41 White Blood Count 11.53 K/uL Red Blood Count 4.20 M/uL Hemoglobin 11.6 g/dL Hematocrit 36.4 % Mean Corpuscular Volume 86.7 fL Mean Corpuscular Hemoglobin 27.6 pg Mean Corpuscular Hemoglobin Concent 31.9 g/dl Platelet Count 318 K/uL Mean Platelet Volume 10.5 fL Neutrophils (%) (Auto) 74.5 % Lymphocytes (%) (Auto) 17.3 % Monocytes (%) (Auto) 7.9 % Eosinophils (%) (Auto) 0.0 % Basophils (%) (Auto) 0.1 % Neutrophils # (Auto) 8.59 K/uL Lymphocytes # (Auto) 2.00 K/uL Monocytes # (Auto) 0.91 K/uL Eosinophils # (Auto) 0.00 K/uL Basophils # (Auto) 0.01 K/uL RDW Standard Deviation 39.4 fL RDW Coefficient of Variation 12.3 % Immature Granulocyte % (Auto) 0.2 % Immature Granulocyte # (Auto) 0.02 K/uL Sodium Level 140 mmol/L Potassium Level 4.3 mmol/L Chloride Level 105 mmol/L Carbon Dioxide Level 30 mmol/L Anion Gap 5.0 mmol/L Blood Urea Nitrogen 13 mg/dl Creatinine 0.96 mg/dl Est Creatinine Clear Calc Drug Dose 58.8 ml/min Estimated GFR () 76.6 Estimated GFR (Non- 66.1 BUN/Creatinine Ratio 13.6 Random Glucose 109 mg/dl Calcium Level 9.2 mg/dl Assessment and Plan 55 yo female with a h/o bipolar disorder, anxiety/depression, hyperlipidemia, and GERD, who is admitted for overnight obs after a lap paula performed by Dr. Loza for biliary colic. Cholecystectomy-doing well post-op day #1, continue stable -surgical management as per SUrgery team -pain control, antiemetics prn -Incentive spirometry -ambulate as tolerated -adv diet as per SUrgery Hyperlipidemia-stable, low on last check as per pt Bipolar disorder, Anxiety/depression GERD-stable but may have been symptoms from biliary colic Surgical Menopause- The above conditions are all stable, will continue current medication I advised patient to call to surgeon or PCP if have any questions Continued [facility] stay due to: other Discharge planning: home
== END 2016-08-27 09:20 | disposition home or self-care (01) ==
LOC: C.ACU 06:43 → C.MSW 09:38 → ENRESERV 10:24
PROVIDERS: ADMIT Surgery; ATTEND Surgery
DX: K80.10 Calculus of gallbladder with chronic cholecystitis without obstruction (principal); F31.9 Bipolar disorder, unspecified; E78.5 Hyperlipidemia, unspecified; K21.9 Gastro-esophageal reflux disease without esophagitis; Z90.79 Acquired absence of other genital organ(s); Z90.722 Acquired absence of ovaries, bilateral; Z90.49 Acquired absence of other specified parts of digestive tract; Z80.0 Family history of malignant neoplasm of digestive organs; Z83.3 Family history of diabetes mellitus

== ENCOUNTER → 2016-11-01 | Outpatient (CLI) | payer OTHER ==
[~2016-11-01] MED LIST changes: -CLINDAMYCIN IV 900 MG in DEXTROSE 5% ADD-VANTAGE 100ML 100 ML IV SCH; +HYDR-5688 PO; -LACTATED RINGER'S 1000ML IV SCH; -SCOPOLAMINE 1.5 MG TDSY TD SCH
[2016-11-01 09:58] LABS: BASO % 0.7 %; BASO ABS # 0.05 K/uL (0-0.2); COMPLETE YES; EOS % 1.5 %; HEMATOCRIT 39.6 % (37-47); IG% 0.4 %; LYMPH % 46.4 %; LYMPH ABS # 3.49 K/uL (1.2-3.4); MEAN CELL VOLUME 86.5 fL (80-100); MEAN CORPUSCULAR HEMOGLOBIN 28.2 pg (25-34); MEAN CORPUSCULAR HGB CONC 32.6 g/dl (32-36); MEAN PLATELET VOLUME 11.3 fL (7.4-10.4); MONO % 9.3 %; NEUT % 41.7 %; PLATELET COUNT 336 K/uL (130-400); RED BLOOD COUNT 4.58 M/uL (4.2-5.4); WHITE BLOOD COUNT 7.52 K/uL (4.8-10.8)
[2016-11-01 10:03] LABS: ALT/SGPT 32 U/L (12-78); BLOOD UREA NITROGEN 18 mg/dl (7-18); BUN/CREATININE RATIO 23.3 (10-20); CALCIUM 9.5 mg/dl (8.5-10.1); CARBON DIOXIDE 27 mmol/L (21-32); CHLORIDE 105 mmol/L (98-107); CHOLESTEROL 197 mg/dl (0-200); CREATININE 0.79 mg/dl (0.60-1.20); GLUCOSE 83 mg/dl (70-99); POTASSIUM 4.6 mmol/L (3.5-5.1); SODIUM 139 mmol/L (136-145); TRIGLYCERIDES 156 mg/dl (0-150); VERY LOW DENSITY LIPOPROT CALC 31 mg/dl
[2016-11-01 10:11] LABS: ALB/GLOB RATIO 1.1 (0.9-2); ALKALINE PHOSPHATASE 41 U/L (45-117); AST/SGOT 16 U/L (15-37); CHOLESTEROL/HDL RATIO 2.8; HDL CHOLESTEROL 71 mg/dl; LDL CHOLESTEROL CALCULATED 95 mg/dl
[2016-11-01 10:17] LABS: ESTIMATED AVERAGE GLUCOSE 120 mg/dl; HA1C FLAG Normal (Normal)
== END | disposition home or self-care (01) ==
LOC: C.LAB1850 08:08
PROVIDERS: ATTEND Physician Assistant
DX: Z79.899 Other long term (current) drug therapy (principal)

== ENCOUNTER → 2017-03-07 | Outpatient (CLI) | payer OTHER ==
[~2017-03-07] MED LIST changes: -HYDR-5688 PO
[2017-03-07 09:54] LABS: BASO % 0.3 %; BASO ABS # 0.02 K/uL (0-0.2); EOS % 1.2 %; EOS ABS # 0.08 K/uL (0-0.5); HEMOGLOBIN 13.6 g/dL (12.0-16.0); IG# 0.03 K/uL (0.00-0.02); LYMPH % 44.2 %; LYMPH ABS # 2.95 K/uL (1.2-3.4); MEAN CELL VOLUME 86.1 fL (80-100); MEAN CORPUSCULAR HEMOGLOBIN 28.6 pg (25-34); MEAN CORPUSCULAR HGB CONC 33.2 g/dl (32-36); MEAN PLATELET VOLUME 10.7 fL (7.4-10.4); MONO % 8.4 %; MONO ABS # 0.56 K/uL (0.11-0.59); NEUT % 45.5 %; NEUT ABS # 3.04 K/uL (1.4-6.5); PLATELET COUNT 340 K/uL (130-400); RED CELL DISTRIBUTION WIDTH CV 12.3 % (11.5-14.5); WHITE BLOOD COUNT 6.68 K/uL (4.8-10.8)
[2017-03-07 10:16] LABS: HEMOGLOBIN A1C 5.7 % (4.5-5.6)
[2017-03-07 11:13] LABS: ALBUMIN 3.8 gm/dl (3.4-5.0); ALT/SGPT 36 U/L (12-78); AST/SGOT 16 U/L (15-37); BLOOD UREA NITROGEN 18 mg/dl (7-18); CARBON DIOXIDE 28 mmol/L (21-32); GLUCOSE 80 mg/dl (70-99); POTASSIUM 3.9 mmol/L (3.5-5.1); SODIUM 136 mmol/L (136-145)
[2017-03-07 11:22] LABS: ALKALINE PHOSPHATASE 45 U/L (45-117); CHOLESTEROL 190 mg/dl (0-200); LDL CHOLESTEROL CALCULATED 86 mg/dl; TOTAL PROTEIN 7.5 gm/dl (6.4-8.2)
== END | disposition home or self-care (01) ==
LOC: C.LAB1850 08:55
PROVIDERS: ATTEND Physician Assistant
DX: Z79.899 Other long term (current) drug therapy (principal)

== ENCOUNTER → 2017-05-20 | Outpatient (CLI) | payer OTHER ==
--- NOTE | 2017-05-22 07:55 | MAMMOGRAPHY REPORT ---
BILATERAL DIGITAL SCREENING MAMMOGRAM TOMOSYNTHESIS WITH CAD: 05/20/2017 CLINICAL HISTORY: Routine screening. Patient has no complaints. TECHNIQUE: Breast tomosynthesis in addition to standard 2D mammography was performed. Current study was also evaluated with a Computer Aided Detection (CAD) system. COMPARISON: Comparison is made to exams dated: 05/16/2016 mammogram, 09/28/2013 mammogram, 09/23/2012 ma mmogram, 09/10/2011 mammogram - [facility], 05/18/2008, and 09/07/2010 mammogram - [facility]. BREAST COMPOSITION: There are scattered areas of fibroglandular density in both breasts. FINDINGS: There are stable benign masses in both breasts. The dominant mass in the 9:00 left breast has associated coarse calcification, most likely representing a degenerating fibroadenoma. No new sánchez spicious mass, architectural distortion or cluster of microcalcifications is seen. IMPRESSION: ACR BI-RADS CATEGORY 1: NEGATIVE There is no mammographic evidence of malignancy. A 1 year screening mammogram is recommended. The pa tient will receive written notification of the results. Approximately 10% of breast cancers are not detected with mammography. A negative mammographic report should not delay biopsy if a clinically suggestive mass is present. Pooja Cameron M.D. ay/:05/20/2017 15:57:06 Cycle Counter: Tova ALICIA)(Rene), [facility] letter sent: Normal 1/2 BI-RADS Code: ACR BI-RADS Category 1: Negative
== END | disposition home or self-care (01) ==
LOC: C.MAMM 14:06
PROVIDERS: ATTEND Obstetrics & Gynecology
DX: Z12.31 Encounter for screening mammogram for malignant neoplasm of breast (principal)

== ENCOUNTER → 2017-09-24 | Outpatient (CLI) | payer OTHER ==
[2017-09-24 10:00] LABS: BASO % 0.6 %; BASO ABS # 0.04 K/uL (0-0.2); EOS ABS # 0.14 K/uL (0-0.5); HEMATOCRIT 41.6 % (37-47); HEMOGLOBIN 13.5 g/dL (12.0-16.0); IG# 0.02 K/uL (0.00-0.02); LYMPH % 46.1 %; LYMPH ABS # 3.29 K/uL (1.2-3.4); MEAN CORPUSCULAR HEMOGLOBIN 27.9 pg (25-34); MEAN CORPUSCULAR HGB CONC 32.5 g/dl (32-36); MEAN PLATELET VOLUME 11.4 fL (7.4-10.4); MONO % 8.4 %; NEUT % 42.6 %; NEUT ABS # 3.04 K/uL (1.4-6.5); PLATELET COUNT 290 K/uL (130-400); RED CELL DISTRIBUTION WIDTH CV 12.6 % (11.5-14.5); WHITE BLOOD COUNT 7.13 K/uL (4.8-10.8)
[2017-09-24 10:24] LABS: ALBUMIN 3.6 gm/dl (3.4-5.0); ALKALINE PHOSPHATASE 41 U/L (45-117); ALT/SGPT 27 U/L (12-78); AST/SGOT 16 U/L (15-37); BLOOD UREA NITROGEN 19 mg/dl (7-18); CALCIUM 8.8 mg/dl (8.5-10.1); CARBON DIOXIDE 25 mmol/L (21-32); CHOLESTEROL 189 mg/dl (0-200); CREATININE 0.87 mg/dl (0.60-1.20); GLUCOSE 75 mg/dl (70-99); LDL CHOLESTEROL CALCULATED 96 mg/dl; SODIUM 138 mmol/L (136-145)
[2017-09-24 10:27] LABS: HEMOGLOBIN A1C 5.9 % (4.5-5.6)
== END | disposition home or self-care (01) ==
LOC: C.LAB1850 08:27
PROVIDERS: ATTEND Physician Assistant
DX: Z51.81 Encounter for therapeutic drug level monitoring (principal); Z79.899 Other long term (current) drug therapy

== ENCOUNTER 2022-11-14 06:33 | Observation (INO) ==
--- NOTE | 2022-11-08 09:39 | Anesthesiology Consultation ---
Date of Service November 08, 2022 Assessment & Plan (1) Encounter for pre-operative examination: - Check BSG AM DOS - Infectious disease screening: Per mask design engineer on 11/06/22: No known infectious disease contacts or current infectious disease symptoms. No noted Covid positive test result in past 90 days. - S/P Left shoulder arthroscopy (04/19/21): Grade view 1, MAC#3, ETT 7.0 + PNB at [facility]. Chart Review Chart Review: Acceptable Risk for Surgery and Patient NOT seen in Pre Admission Testing History Surgery Operation Date: 11/14/22 08:15 Proposed Procedures p Bilateral First Stage Immediate Breast Reconstruction with Tissue Maint Mechanic and Acelluar Dermal Matrix - Yulissa Valladares MD s Bilateral Total Mastectomy with Left [place] Lymph Node Biopsy (Injection Only in [place] @ 0800) - Darryn Ellison DO Height/Weight Height: 5 ft 1.5 in Weight: 69.4 kg Allergies Allergy/AdvReac Type Severity Reaction Status Date / Time lithium Allergy Intermediate Rash Verified 11/06/22 16:32 risperidone Allergy Intermediate Rash Verified 11/08/22 10:08 Medications Home Medications Medication Instructions Recorded Confirmed Last Taken estradiol 1 mg tablet 1 mg PO QAM 08/25/19 11/06/22 06/07/22 hydroxyzine HCl 25 mg tablet 25 mg PO HS 09/01/19 11/06/22 06/06/22 pravastatin 20 mg tablet 20 mg PO HS 09/01/19 11/06/22 06/06/22 ascorbic acid (vitamin C) 500 mg 500 mg PO QAM 04/11/21 11/06/22 06/07/22 chewable tablet calcium carbonate 500 mg calcium 1,000 mg PO QAM 06/07/22 11/06/22 06/07/22 (1,250 mg) tablet albuterol sulfate 90 mcg/actuation 2 puff inhalation Q6H PRN 08/07/22 11/06/22 Unknown aerosol inhaler Shortness Of Breath bupropion HCl 100 mg tablet,12 hr 100 mg PO QAM 08/07/22 11/06/22 Unknown sustained-release (Wellbutrin SR) clindamycin HCl 300 mg capsule 300 mg PO TID 7 days #21 caps 10/31/22 10/31/22 Unknown oxycodone-acetaminophen 5 mg-325 1 tab PO Q4H PRN pain 3 days #18 10/31/22 10/31/22 Unknown mg tablet (Percocet) tabs clonazepam 1 mg tablet 1 mg PO HS 11/06/22 11/06/22 Unknown metformin 500 mg tablet 500 mg PO QPM 11/06/22 11/06/22 Unknown quetiapine 50 mg tablet 50 mg PO HS 11/06/22 11/06/22 Unknown Past Medical History Medical History Anxiety and depression Bipolar disorder Breast cancer Dx 09/2022 Heel spur Left foot History of kidney stones No surgery required Hyperlipidemia Insomnia Low back problem Back "goes out of place easily" if she isn't careful Prediabetes Restless leg syndrome Past Family History Family History Father Colorectal cancer Pancreas cancer Sister Diabetes Mother Diabetes Hypertension Stroke Other No family history of adverse response to anesthesia Denies family history of Ovarian cancer Breast cancer Past Surgical History Surgical History H/O shoulder surgery Left History of bladder surgery Bladder tack History of cholecystectomy History of colonoscopy History of total abdominal hysterectomy History of tubal ligation Nausea and vomiting after administration of anesthetic agent Social History Smoking Status: Never smoker Do You Dip or Chew Tobacco: No Hx Alcohol Use: Yes Alcohol type: beer and wine alcohol intake frequency: other Alcohol Intake Frequency Comment: socially Hx Substance Use: No substance use type: does not use Lab Results Anesthesia Preop Results Results Anesthesia Widget: WBC 10.60 K/ul (4.8-10.8) 10/31/22 Hgb 13.9 g/dl (12.0-16.0) 10/31/22 Hct 40.6 % (37.0-47.0) 10/31/22 Plt 361 K/uL (130-400) 10/31/22 Na 136 mmol/L (136-145) 10/31/22 K 3.9 mmol/L (3.5-5.1) 10/31/22 Cl 100 mmol/L (98-107) 10/31/22 CO2 28 mmol/L (21-32) 10/31/22 BUN 14 mg/dl (6-23) 10/31/22 Creat 0.71 mg/dl (0.6-1.2) 10/31/22 Glucose Level 110 mg/dl (70-99(Fasting)) H 10/31/22 PT 10.1 Seconds (9.0-12.0) 10/31/22 INR 0.9 (0.9-1.1) 10/31/22 Testing Electrocardiogram Date: 11/01/22 Findings: + NSR @ (93)
[~2022-11-14 06:33] MED LIST changes: -BUPR-83 PO; -CALCTAB7 PO; +CLINDAMYCIN/D5W 300 MG/50 ML BAG IV SCH; +CLINDAMYCIN/D5W 600 MG/50 ML BAG IV SCH; -DIVA500T59 PO; -ESTR1TAB2 PO; -FENO160T PO; +LACTATED RINGER'S 1,000 ML IV SCH; +LR 15ML/HR IV SCH; -MIRT15TA2 PO; -PANT40TA PO; +TRANEXAMIC ACID 1,000 MG **IV Intra-op IV SCH; +TRANEXAMIC ACID 1,000 MG **IV Pre-op IV SCH; +[UNRECOGNIZED DRUG - REMARK] SCH
--- NOTE | 2022-11-14 07:35 | History & Physical Bridge Note ---
Date of Service November 14, 2022 History & Physical Bridge Note I have examined the patient, reviewed the History & Physical and in the interval since the performance of the History & Physical I have noted the following changes of clinical significance: had cortisone shot in her foot yesterday. Will plan to proceed given cancer diagnosis but patient advised to contact me prior to any other procedures/new meds/etc during recovery period.
[2022-11-14] MEDS ORDERED: LABETALOL HCL IV 5 MG/ML 20ML IV PRN (08:52)
[2022-11-14] MEDS ORDERED: SCOPOLAMINE 1 MG TDSY TD ONE ×2 (08:52→08:54)
[2022-11-14] MEDS ORDERED: PROMETHAZINE HCL 6.25 MG in SODIUM CHLORIDE 0.9% 50 ML IV PRN (08:52)
[2022-11-14] MEDS ORDERED: ONDANSETRON INJ 2 MG/ML 2 ML VIAL IV PRN (08:52)
[2022-11-14] MEDS ORDERED: ATROPINE SULFATE 0.1 MG/ML 10ML SYR IV PRN (08:52)
--- NOTE | 2022-11-14 08:52 | History & Physical Report ---
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 No new medications or allergies. Allergies Allergy/AdvReac Type Severity Reaction Status Date / Time lithium Allergy Intermediate Rash Verified 11/14/22 06:57 risperidone Allergy Intermediate Rash Verified 11/14/22 06:57 Home Medications Medication Instructions Recorded Confirmed Type estradiol 1 mg tablet 1 mg PO QAM 08/25/19 11/14/22 History hydroxyzine HCl 25 mg tablet 25 mg PO HS 09/01/19 11/14/22 History pravastatin 20 mg tablet 20 mg PO HS 09/01/19 11/14/22 History ascorbic acid (vitamin C) 500 mg 500 mg PO QAM 04/11/21 11/14/22 History chewable tablet calcium carbonate 500 mg calcium 1,000 mg PO QAM 06/07/22 11/14/22 History (1,250 mg) tablet albuterol sulfate 90 mcg/actuation 2 puff inhalation Q6H PRN 08/07/22 11/14/22 History aerosol inhaler Shortness Of Breath bupropion HCl 100 mg tablet,12 hr 100 mg PO QAM 08/07/22 11/14/22 History sustained-release (Wellbutrin SR) clindamycin HCl 300 mg capsule 300 mg PO TID 7 days #21 caps 10/31/22 10/31/22 Rx oxycodone-acetaminophen 5 mg-325 1 tab PO Q4H PRN pain 3 days #18 10/31/22 10/31/22 Rx mg tablet (Percocet) tabs clonazepam 1 mg tablet 1 mg PO HS 11/06/22 11/14/22 History metformin 500 mg tablet 500 mg PO QPM 11/06/22 11/14/22 History quetiapine 50 mg tablet 50 mg PO HS 11/06/22 11/14/22 History Past Med/Surg History Medical History Anxiety and depression Bipolar disorder Breast cancer Dx 09/2022 Heel spur Left foot History of kidney stones No surgery required Hyperlipidemia Insomnia Low back problem Back "goes out of place easily" if she isn't careful Prediabetes Restless leg syndrome Surgical History H/O shoulder surgery Left History of bladder surgery Bladder tack History of cholecystectomy History of colonoscopy History of total abdominal hysterectomy History of tubal ligation Nausea and vomiting after administration of anesthetic agent Family History Father Colorectal cancer Pancreas cancer Sister Diabetes Mother Diabetes Hypertension Stroke Other No family history of adverse response to anesthesia Denies family history of Ovarian cancer Breast cancer Social History Smoking Status: Never smoker Second Hand Exposure: Yes (hx as child); Do You Dip or Chew Tobacco: No; Tobacco Cessation Education Requested by Patient: No Hx Alcohol Use: Yes Alcohol type: beer and wine Alcohol Intake Frequency Comment: socially Hx Substance Use: No Preferred Language: Persian Communication Ability: Effective Stoner Hand Required: No Beliefs That Will Affect Care: None Current Living Situation: Alone Current Living Situation Comment: "[employer]RIEND COMES AND STAYS SOMETIMES" current occupational status: employed current occupation: caregiver How many Children do You have: 3 Other Information That Helps Us Care for You: No Feels Safe at Home: Yes Safety Concerns: Feels Safe At This Time during the past year weight has: decreased > 10 lbs Assistive Devices: Glasses Physical Exam Constitutional: WD/WN, vitals as above Eyes: PERRL, conjunctivae normal, anicteric sclerae ENMT: external ear and nose normal, oropharynx normal Neck: trachea midline, no thyromegaly Respiratory: normal respiratory effort, lungs clear to auscultation Cardiovascular: RRR, no murmur, no edema Chest (Breasts): Chest: normal inspection of chest; no mass Breast: normal inspection of breasts, normal inspection of axillae, normal palpation of breasts and normal palpation of axillae; no skin thickening, no breast mass, no breast tenderness and no axillary mass Gastrointestinal (Abdomen): normal bowel sounds, soft, nontender, no hepatosplenomegaly Musculoskeletal: no cyanosis or clubbing, extremities motor strength 5/5 Skin: no rashes, warm and dry Neurologic: PERRL, EOMI, accommodation nl, no face palsy, no dysarthria Psychiatric: A+Ox3, euthymic affect Results & Data Results & Data Vital Signs (Past 12 Hours) Vital Signs Temp Pulse Resp BP Pulse Ox O2 Del Method 11/14/22 07:01 36.3 C L 91 H 20 155/108 H 95 Room Air PG Care Time/CCT Total # of Minutes Spent Total Time Spent with Patient: Total time spent is greater than 50% in coordination of care (as documented) at patient's floor/unit and/or counseling patient: Coding Level of Care Code None Diagnoses 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
[2022-11-14] MEDS ORDERED: BUPIVACAINE 0.25% PF 30 ML VIAL ONE (10:32)
[2022-11-14] MEDS ORDERED: LIDOCAINE 1%/EPINEPHRINE 1:100,000 20 ML VIAL ONE (10:32)
[2022-11-14] MEDS ORDERED: GENTAMICIN SULFATE 40 MG/ML 2 ML VIAL ONE (10:32)
[2022-11-14] MEDS ORDERED: BUPIVACAINE/EPINEPHRINE 0.25% 1:200,000 30 ML VIAL ONE (10:32)
[2022-11-14] MEDS ORDERED: ceFAZolin 330 MG/ML 1 GM VIAL ONE (10:32)
[2022-11-14] MEDS ORDERED: ISOSULFAN BLUE 10 MG/ML VIAL 5 ML IV ONE (10:35)
[2022-11-14] MEDS ORDERED: SODIUM CHLOR/HYPOCHLOROUS ACID 475 ML BTL IR ONE (10:37)
--- NOTE | 2022-11-14 11:00 | Nuclear Medicine Report ---
LYMPHOSCINTIGRAPHY CLINICAL HISTORY: BREAST CA PROCEDURE: Using standard sterile technique, 4 intradermal and one deep injection of 1.0 mCi of Lymph oseek was placed in the left breast. The patient tolerated the procedure well. There were no immediat e complications. The patient was subsequently transported to the surgical suite. No imaging was obtai deloris at the referring physician's request. IMPRESSION: Satisfactory injection of Lymphoseek in the left breast. ACT 112: Negative or not required by law. Electronically signed by: Lopez Guevara M.D. 11/14/2022 10:58 AM
--- NOTE | 2022-11-14 12:15 | Post Operative Brief Note ---
PG Immediate Post Op with CF Date of Surgery November 14, 2022 Pre & Post Diagnosis Operation Date: 11/14/22 09:00 Pre-Op Diagnosis: Left Breast DCIS, Papillary Carcinoma Left Breast Post-Op Diagnosis: Left Breast DCIS, Papillary Carcinoma Left Breast I identified the patient and participated in the time-out.: Yes Procedure Operation Date: 11/14/22 09:00 Actual Procedures p Bilateral Total Mastectomy with Left Axillary [place] Lymph Node Biopsy - Darryn Ellison DO Surgeon Darryn Ellison DO Lumber Piler Ashleigh Smith PA-C Estimated Blood Loss 25 Findings Consistent with Post-Op Diagnosis Specimens Specimen Description: A. Right Breast; Short Stitch Superior, Long Stitch Lateral B. Left [place] Lymph Node #1, Hot and Blue, Neoprobe 4385 C. Left Breast; Short Stitch Superior, Long Stitch Lateral Drains Ureña Catheter Anesthesia Type General Complications none Disposition Disposition: Recovery Room
--- NOTE | 2022-11-14 12:22 | Operative Report ---
PG Post Operative Report Pre & Post Diagnosis Operation Date: 11/14/22 09:00 Pre-Op Diagnosis: Left Breast DCIS, Papillary Carcinoma Left Breast Post-Op Diagnosis: Left Breast DCIS, Papillary Carcinoma Left Breast I identified the patient and participated in the time-out.: Yes Procedure Operation Date: 11/14/22 09:00 Actual Procedures p Bilateral Total Mastectomy with Left Axillary [place] Lymph Node Biopsy- Darryn Ellison DO Surgeon Darryn Ellison DO Armored Machine Operator Ashleigh Smith PA-C Estimated Blood Loss 25 Findings Consistent with Post-Op Diagnosis Specimens A. Right Breast; Short Stitch Superior, Long Stitch Lateral B. Left [place] Lymph Node #1, Hot and Blue, Neoprobe 4385 C. Left Breast; Short Stitch Superior, Long Stitch Lateral Drains Ureña Anesthesia Type General Complications none Disposition Disposition: Recovery Room Indications 61-year-old female with left breast papillary carcinoma and left breast DCIS Description of Procedure The patient was brought to the OR and placed in the supine position with both arms abducted. At this time she underwent general endotracheal anesthesia without any problems. She was given appropriate pre-operative antibiotics. Lymphazurin was injected in a periareolar manner prior to skin prep in the left breast. Her bilateral chest and axilla were prepped and draped in the usual sterile fashion. Timeout was called. The procedure was verified as bilateral total Mastectomy with left axillary sentinel lymph node biopsy. Surgical, anesthesia and nursing teams agreed and the procedure was begun. We begun by starting with the non-cancer side which was the right side. A transverse elliptical incision was made on the right breast to include the nipple areolar complex. This was carried down the the subcutaneous tissue with electrocautery. At this point skin flaps were raised with electrocautery superiorly to the clavicle, medially to the sternum, inferiorly to the inframammary fold, and laterally to the latissimus. The breast tissue was then removed from the pectoralis major muscle along the with fascia. The breast was then transected laterally and sent of as specimen. A wet lap pad was then placed in the right breast incision and we prepared to perform the left axillary sentinel lymph node biopsy and left mastectomy. At this point our attention was turned to the left axilla for the sentinel lymph node biopsy. The neoprobe was placed into the axilla and a hot but not blue node was found and count was 4385. This was excised sharply and sent as specimen. Placing the neoprobe in the axilla revealed a count of 160. Palpation of the axilla revealed no abnormal palpated lymph nodes. At this time the incision was irrigated until clear. At this point the left breast was then removed in a similar fashion to the right breast as described above. Both specimens were oriented short stitch superior, long lateral and sent to pathology. The left breast was x-rayed and revealed 2 biopsy clips within the specimen. Needle and sponge count were correct x 2. At this point the patient was turned over to Dr. Valladares for her to complete her portion of the case. The patient remained stable and intubated in the operating room. The physician's school office assistant was present and scrubbed for the entire case. He was essential for positioning, prepping and draping the patient, retraction and exposure, closure of the incision and placement of the dressings. I attest to the content of the Intraoperative Record and any orders documented therein. Any exceptions are noted below.
--- NOTE | 2022-11-14 14:42 | Post Operative Brief Note ---
PG Immediate Post Op with CF Date of Surgery November 14, 2022 Pre & Post Diagnosis Operation Date: 11/14/22 09:00 Pre-Op Diagnosis: Left Breast DCIS, Papillary Carcinoma Left Breast Post-Op Diagnosis: Left Breast DCIS, Papillary Carcinoma Left Breast I identified the patient and participated in the time-out.: Yes Procedure Operation Date: 11/14/22 09:00 Actual Procedures p Bilateral Total Mastectomy with Left [place] Lymph Node Biopsy (Injection Only in [place] @ 0800)(Bilateral) - DO mary Bell Bilateral First Stage Immediate Breast Reconstruction with Tissue Kettle Girl and Acelluar Dermal Matrix(Bilateral) - Yulissa Valladares MD Surgeon Yulissa Valladares MD Rewinder Operator Helper Ashleigh Smith PA-C Estimated Blood Loss 35 Findings Consistent with Post-Op Diagnosis Specimens Specimen Description: A. Right Breast; Short Stitch Superior, Long Stitch Lateral B. Left [place] Lymph Node #1, Hot and Blue, Neoprobe 4385 C. Left Breast; Short Stitch Superior, Long Stitch Lateral Drains Ureña Catheter Anesthesia Type General
--- NOTE | 2022-11-14 14:54 | Operative Report ---
PG Post Operative Report Pre & Post Diagnosis Operation Date: 11/14/22 09:00 Pre-Op Diagnosis: Left Breast DCIS, Papillary Carcinoma Left Breast Post-Op Diagnosis: Left Breast DCIS, Papillary Carcinoma Left Breast I identified the patient and participated in the time-out.: Yes Procedure Operation Date: 11/14/22 09:00 Actual Procedures p Bilateral Total Mastectomy with Left [place] Lymph Node Biopsy (Injection Only in [place] @ 0800)(Bilateral) - Darryn Ellison, s Bilateral First Stage Immediate Breast Reconstruction with Tissue Anhydrous Ammonia Production Supervisor and Acelluar Dermal Matrix(Bilateral) - Yulissa Valladares MD Surgeon Yulissa Valladares MD Foreman/Project Manager Ashleigh Smith PA-C Estimated Blood Loss 35 Findings Consistent with Post-Op Diagnosis Specimens per Dr. Ellison Drains JPx2 Anesthesia Type General Complications none Disposition Disposition: Recovery Room Indications left breast CA, s/p bilateral mastectomy and desiring immediate implant based reconstruction Description of Procedure Risks benefits and alternatives of the procedure were explained the patient agreed and signed consent. She was identified and marked in the preoperative holding area. She was taken to the operating room initially by Dr. Ellison for bilateral mastectomy and left sentinel lymph node biopsy. Please see his dictation for details. Upon completion of his portion of the case, the reconstructive portion of the procedure was begun. The surgical site was again prepped and draped sterilely, timeout procedure was performed. I began with the left side. Upon inspection, flaps were thin but did appear to be viable. Hemostasis was achieved with electrocautery. Pectoralis major muscle was then identified and elevated. Inferior attachments of pectoralis major muscle were divided along the ribs medially to the sternum. None of the sternal attachments were dissected. The retropectoral plane was then developed using electrocautery. Hemostasis was achieved using cautery. Once adequate dissection had been performed, I then chose a piece of medium contour thick AlloDerm which was then used to create a sling for the lower pole. This was first sutured to the inframammary fold using 2-0 Vicryl U stitches. Pocket was then measured and base diameter was 14 cm. Therefore, I selected a TraktoPRO style 133S MVT tissue manager social services with base diameter of 14 cm, fill volume 500 cc. Left manager social services serial #[id number]. The manager social services was prepared and air was aspirated out. The manager social services was soaked in antibiotic irrigation and antibiotic irrigation as well as Vashe wound wash was used to irrigate the pocket. All instruments were wiped down and gloves were changed. Anhydrous Ammonia Production Supervisor was placed along the inframammary fold as medially as possible. Suture tabs were sutured down to underlying periosteum using a 2-0 Vicryl suture. The remainder of the manager social services was then enclosed using 2-0 Vicryl running suture to reapproximate the AlloDerm which had been trimmed to size and this was approximated to the pectoralis major muscle. Laterally, this was closed down using 2-0 Vicryl interrupted sutures as well. A 15-Kazakh Darryn drain was placed in the wound and brought out through a separate stab incision. Prior to reapproximating the wound the fill port was identified using the magna-finder and accessed using a Fourte needle. A total of 250 mL were placed prior to closure. Wound was reapproximated using 2-0 Vicryl deep dermal suture, 3-0 PDS superficial dermal suture and 3-0 Monocryl running subcuticular suture. Drain was sutured in place using 3-0 nylon. Dermabond was applied. An identical procedure was performed on the right side, tissue manager social services with serial #[id number] was placed. The drain site was dressed using Acticoat dry dressing and Tegaderm. Provena Shalonda wound dressings were placed bilaterally. Procedure was tolerated well. Ashleigh Smith PA-C was present and scrubbed throughout the entire procedure and was instrumental in providing exposure during elevation of pectoralis muscle and suturing of the AlloDerm as well as filling expanders and assisting in wound closure. I attest to the content of the Intraoperative Record and any orders documented therein. Any exceptions are noted below.
[2022-11-14] MEDS ORDERED: SODIUM CHLORIDE 0.9% 50 ML BAG ONE ×2 (15:05→15:28)
[2022-11-14] MEDS ORDERED: PROMETHAZINE HCL INJ 25 MG/ML 1 ML VIAL ONE ×2 (15:05→15:28)
[2022-11-14] MEDS ORDERED: PROMETHAZINE HCL 6.25 MG in SODIUM CHLORIDE 0.9% 50 ML IV STA (15:31)
[2022-11-14] MEDS: HYDROmorphone INJ 1 MG/ML SYRINGE IV PRN ×4 (15:54→16:20)
--- NOTE | 2022-11-14 16:34 | Anesthesiology Progress Note ---
Date of Service November 14, 2022 Anesthesia Post Procedure Vital Signs Vital Signs: Temp Pulse Pulse Resp BP Pulse Ox O2 Del Method 11/14/22 16:30 78 13 131/62 99 Nasal Cannula 11/14/22 16:10 75 12 134/79 100 Nasal Cannula 11/14/22 16:00 74 14 151/69 H 100 Nasal Cannula 11/14/22 15:50 74 16 148/75 H 100 Nasal Cannula 11/14/22 15:40 72 17 144/81 H 100 Nasal Cannula 11/14/22 15:20 75 16 134/75 93 Room Air 11/14/22 15:10 66 21 142/88 H 100 Oxymask 11/14/22 15:00 73 23 141/95 H 100 Oxymask 11/14/22 16:20 36.5 C 77 12 145/72 H 99 Nasal Cannula 11/14/22 15:30 70 16 138/81 99 Nasal Cannula 11/14/22 14:51 36 C L 75 21 136/85 94 Oxymask 11/14/22 07:01 36.3 C L 91 H 20 155/108 H 95 Room Air O2 Flow Rate 11/14/22 16:30 2 11/14/22 16:10 2 11/14/22 16:00 2 11/14/22 15:50 2 11/14/22 15:40 2 11/14/22 15:20 11/14/22 15:10 2 11/14/22 15:00 4 11/14/22 16:20 2 11/14/22 15:30 2 11/14/22 14:51 6 11/14/22 07:01 Pain Intensity Bilateral Lower Back: Pain Intensity: 3 Bilateral Chest: Pain Intensity: 4 Transfer of Care Handoff Completed per policy Notes Mental Status: alert / awake / arousable Patient Amnestic to Procedure: Yes Nausea / Vomiting: adequately controlled Pain: adequately controlled Airway Patency, RR, SpO2: stable & adequate BP & HR: stable & adequate Hydration State: stable & adequate Anesthetic Complications: no major complications apparent
[2022-11-14] MEDS ORDERED: oxyCODONE/ACETAMINOPHEN 5mg/325mg TAB PO PRN (17:27)
[2022-11-14] MEDS ORDERED: ACETAMINOPHEN 325 MG TAB PO PRN (17:27)
[2022-11-14] MEDS ORDERED: diphenhydrAMINE 50 MG/ML VIAL IV PRN (17:27)
[2022-11-14] MEDS ORDERED: diphenhydrAMINE Capsule 25 MG CAP PO PRN (17:27)
[2022-11-14] MEDS ORDERED: MoRPHine SULFATE 2 MG/ML CARP IV PRN (17:27)
[2022-11-14] MEDS ORDERED: MoRPHine SULFATE 4 MG/ML 1 ML CARP\\VIAL IV PRN (17:27)
[2022-11-14] MEDS ORDERED: PROMETHAZINE HCL 12.5 MG in SODIUM CHLORIDE 0.9% 50 ML IV PRN (17:27)
[2022-11-14] MEDS: CHECK SCOPOLAMINE PATCH PLACEMENT SCH ×2 (18:35→23:51)
[2022-11-14] MEDS: ONDANSETRON INJ 2 MG/ML 2 ML VIAL IV PRN (18:50)
[2022-11-14] MEDS: LACTATED RINGER'S 1,000 ML IV SCH (20:58)
[2022-11-14] MEDS ORDERED: QUEtiapine FUMARATE 25 MG TABLET PO SCH (21:00)
[2022-11-14] MEDS ORDERED: hydrOXYzine HCl 25 MG TAB PO SCH (21:00)
[2022-11-14] MEDS ORDERED: clonazePAM 1 MG TAB PO SCH (21:00)
[2022-11-14] MEDS ORDERED: PRAVASTATIN SOD 20 MG TAB PO SCH (21:00)
[2022-11-14] MEDS: ceFAZolin 2000MG 2,000 MG/15 ML SYR IV SCH (21:01)
[2022-11-15] MEDS: ONDANSETRON INJ 2 MG/ML 2 ML VIAL IV PRN (03:34)
[2022-11-15] MEDS: ceFAZolin 2000MG 2,000 MG/15 ML SYR IV SCH (05:18)
[2022-11-15] MEDS: oxyCODONE/ACETAMINOPHEN 5mg/325mg TAB PO PRN ×2 (05:49→11:07)
[2022-11-15] MEDS: LACTATED RINGER'S 1,000 ML IV SCH (07:59)
--- NOTE | 2022-11-15 08:33 | Surgery Progress Note ---
Date of Service November 15, 2022 Assessment & Plan (1) S/P mastectomy, bilateral: Plan Doing well POD#1. D/C home today. Reviewed post-op care instructions- will add Vit A due to recent steroid injection. Office follow-up scheduled for Friday. Admission and Anticipated Discharge Date Admission Date: November 14, 2022 Subjective Armando is feeling well. Has good pain control on Endocet. She is able to void, tolerating a regular diet. Physical Exam Physical Exam: bilat drains with serosang output. wound vacs holding excellent suction Results & Data Vital Signs (Past 12 Hours) Vital Signs Temp Pulse Resp BP Pulse Ox O2 Del Method 11/15/22 06:21 36.8 C 102 H 16 134/69 11/15/22 03:00 36.9 C 76 16 110/71 95 Room Air 11/15/22 02:00 37 C 74 16 128/74 95 Room Air 11/14/22 22:56 37.0 C 74 18 128/73 94 Room Air PG Care Time/CCT Total # of Minutes Spent Total Time Spent with Patient: Total time spent is greater than 50% in coordination of care (as documented) at patient's floor/unit and/or counseling patient: Coding Level of Care Code 06291 Post Operative Follow-Up Diagnoses S/P mastectomy, bilateral Z90.13
[2022-11-15] MEDS: CHECK SCOPOLAMINE PATCH PLACEMENT SCH (08:49)
[2022-11-15] MEDS ORDERED: buPROPion SR 100 MG TABCR PO SCH (09:00)
--- NOTE | 2022-11-15 10:04 | Surgery Progress Note ---
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 Has minimal pain. Seen by plastic surgery and she will be discharged later. No acute events overnight. Physical Exam Constitutional: WD/WN, vitals as above Chest (Breasts): Additional Comments: Bilateral [place] wound vacs in place Drains with some serosanguineous drainage Results & Data Vital Signs (Past 12 Hours) Vital Signs Temp Pulse Resp BP Pulse Ox O2 Del Method 11/15/22 06:21 36.8 C 102 H 16 134/69 11/15/22 03:00 36.9 C 76 16 110/71 95 Room Air 11/15/22 02:00 37 C 74 16 128/74 95 Room Air 11/14/22 22:56 37.0 C 74 18 128/73 94 Room Air PG Care Time/CCT Total # of Minutes Spent Total Time Spent with Patient: Total time spent is greater than 50% in coordination of care (as documented) at patient's floor/unit and/or counseling patient: Coding Level of Care Code 63749 Post Operative Follow-Up Diagnoses 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
--- NOTE | 2022-11-18 09:16 | Discharge Summary ---
Date of Service November 18, 2022 Admission HPI Per Admitting Provider This is a 61-year-old female presents today for bilateral mastectomy. No new medications or allergies. Admission Exam Per Admitting Provider see admission H&P Principal Diagnosis history of left breast cancer Discharge Exam bilat drains with serosang output. wound vacs holding excellent suction Discharge Data Allergies Allergy/AdvReac Type Severity Reaction Status Date / Time lithium Allergy Intermediate Rash Verified 11/14/22 06:57 risperidone Allergy Intermediate Rash Verified 11/14/22 06:57 Procedures Performed Operation Date: 11/14/22 09:00 Actual Procedures p Bilateral Total Mastectomy with Left [place] Lymph Node Biopsy (Injection Only in [place] @ 0800)(Bilateral) - Darryn Ellison DO s Bilateral First Stage Immediate Breast Reconstruction with Tissue Model And Mold Maker and Acelluar Dermal Matrix(Bilateral) - Yulissa Valladares MD Ordered Studies 11/14/22 05:00 US - OR guided needle placemen Routine Hospital Course (1) S/P mastectomy, bilateral: Patient presented to [facility] with history of left breast cancer. She was taken to the OR and underwent bilateral mastectomy with Dr. Ellison and immediate breast reconstruction using tissue expanders and acellular dermal matrix with Dr. Valladares. There were no intraoperative complications. She was taken to recovery and transferred to med/surg for observation. On POD#1, she was feeling well. She was tolerating a regular diet and ambulating. On exam, her vitals were stable. Prevena wound vac was placed intraoperatively and holding excellent suction POD#1. Her drains had appropriate output. She was discharged home with instructions to follow-up in the office in one day. Total Time Total Time Spent Total Time Spent (In Minutes): 15 Total Time Includes: Examination of the Patient, Discharge Planning and Communication With Other Providers Discharge Plan Discharge Items Patient Disposition: Home - Self-Care Reason For Visit: Left Breast DCIS, Papillary Carcinoma Left Breast Discharge Diagnosis: bilateral breast mastectomy left sentinel lymph node biopsy Activity: As commented below Non-emergency contact: Surgeon Call non-emergency contact if: you have any medication questions, your pain is not controlled, you have a fever and your wound has increased redness Follow-up/Referrals: Ashleigh Smith PA-C [Physician Tank Refinisher] - 11/18/22 10:45 am Darryn Ellison DO [Physician] - 11/27/22 10:15 am (Please call to schedule follow up in clinic within 2 weeks ) Susan Rutledge, [Primary Care Provider] - Diet: Regular Addtl Attending Provider Instructions: ACTIVITY RECOMMENDATIONS: __Normal activities _x_No bending, lifting or straining. Keep arms at shoulder height or below __No driving __Driving allowed when you are off pain medications __Walking permitted x __You should have help at home for ___ days DRESSINGS: __No dressings required _x_Keep dressings dry/in place until first office visit. Keep wound vac charged __Remove dressings ___ and leave dressings off __Apply ice ___ days __Remove dressings and reapply garment __Apply antibiotic ointment (Bacitracin, Neosporin, etc) to wounds 3-4 times/day for 10 days BATHING: _x_Keep dressings dry _x_Sponge bathing permitted away from all surgical sites __Showering permitted _x_No swimming, hot tubs or soaking in a tub MEDICATIONS: Resume previous medications unless instructed otherwise by your surgeon. _x_Do not use aspirin, Motrin, Advil or Ibuprofen as these may promote bleeding. Please use Tylenol. _x_Prescription(s) provided: pain medication and antibiotics were prescribed at your last office visit. Start antibiotics today. You shoudl also start taking Vitamin A, 25,000 units a day for 5 days to help with wound healing OTHER INSTRUCTIONS: _x_Record drain output 2-3 times per day SPECIAL CARE INSTRUCTIONS: * It is normal to have a mild fever after surgery. If your temperature is higher than 101.5 degrees F, please call the office at [phone]. * Constipation is a typical side effect of pain medication. An [id number] stool softener will help relieve this. * Leaking around surgical drains may occur and should not cause concern. Sometimes these drains become clogged. If this happens, remove the bulb and milk the clot out of the tube, then replace the bulb. * Drainage from wounds after liposuction is normal and should be expected. Garments will become soiled. You should protect furniture and bedding. This drainage should mostly subside within 2-3 days. Leave garments in place unless instructed to remove them. * If you have unusual drainage from a wound or are concerned you have an infection or have any questions or concerns, please call the office at [phone]. FOLLOW UP VISIT: If not already scheduled, please call the office, , when you return home after surgery to schedule an appointment to be seen in __3_ days. Pending Studies at Discharge: Yes Studies:: surgical pathology Stand-Alone Forms: [facility], Pain - Opioid Pain Management Medications and DC Order Prescriptions: Continued clindamycin HCl 300 mg capsule 300 mg PO TID 7 Days Qty: 21 0RF oxycodone-acetaminophen [Percocet] 5-325 mg tablet 1 tab PO Q4H PRN (Reason: pain) 3 Days Qty: 18 0RF Rx Instructions: Initial therapy. estradiol 1 mg tablet 1 mg PO QAM pravastatin 20 mg tablet 20 mg PO HS hydroxyzine HCl 25 mg tablet 25 mg PO HS albuterol sulfate 90 mcg/actuation HFA aerosol inhaler 2 puff inhalation Q6H PRN (Reason: Shortness Of Breath) bupropion HCl [Wellbutrin SR] 100 mg tablet sustained-release 12 hr 100 mg PO QAM calcium carbonate 500 mg calcium (1,250 mg) Tablet 1,000 mg PO QAM Hold Instructions: SURGERY ascorbic acid (vitamin C) 500 mg Tablet,Chewable 500 mg PO QAM Hold Instructions: SURGERY metformin 500 mg Tablet 500 mg PO QPM clonazepam 1 mg tablet 1 mg PO HS quetiapine 50 mg tablet 50 mg PO HS Patient Comments: has been taking 2 tablets at bedtime because "it makes me tired quicker to go to sleep" Discharge Orders: Discharge Order (Routine); Ordered 11/15/22 Ordered By: Ashleigh Yu/Other Patient Handouts: DVT Post Op Prevention Admission Data Admit Date/Time: 11/14/22 14:49 Attending Provider: Yulissa Valladares Admit Provider: Yulissa Valladares Primary Care Provider: Susan Rutledge Other Interventions: Discharge Summary Assessment (RN) Last Done: 11/15/22 10:39 Coding Level of Care Code 11070 OBS Care - Discharge Diagnoses S/P mastectomy, bilateral Z90.13
== END 2022-11-15 12:51 | disposition home or self-care (01) ==
LOC: 3W 06:33 → ASU 06:33